=== PATIENT | male | born 1995 | race African-American/Black ===

== ENCOUNTER 2017-01-14 11:50 | Emergency (ER) | payer OTHER | END 2017-01-14 15:30 | disposition home or self-care (01) | LOC: ER 11:50 | DX: M54.5 Low back pain (principal); Z88.5 Allergy status to narcotic agent; Z88.8 Allergy status to other drugs, medicaments and biological substances | CPT/HCPCS: 72100; 99283 ==

== ENCOUNTER 2017-02-18 11:35 | Emergency (ER) | payer OTHER | END 2017-02-18 11:47 | disposition home or self-care (01) | LOC: ER 11:35 | PROC: 2W3DX1Z Immobilization of Left Lower Arm using Splint (ICD-10-PCS; principal; 2017-02-18) | DX: S96.912A Strain of unspecified muscle and tendon at ankle and foot level, left foot, initial encounter (principal); S66.912A Strain of unspecified muscle, fascia and tendon at wrist and hand level, left hand, initial encounter; Z88.5 Allergy status to narcotic agent; Z88.6 Allergy status to analgesic agent; W19.XXXA Unspecified fall, initial encounter; Y93.67 Activity, basketball | CPT/HCPCS: 73100-LT; 73610-LT; 99283 ==